=== PATIENT | female | born 1980 | race Two or more races ===

== ENCOUNTER 2016-08-01 14:18 | Inpatient (IN) | payer OTHER ==
[2016-08-01] MEDS ORDERED: DIAZEPAM 5 MG/ML SYRINGE 2 ML ONE (14:28)
[2016-08-01] MEDS ORDERED: LACTATED RINGERS 1,000 ML ONE (14:28)
[2016-08-01 15:01] LABS: ABSOLUTE NEUTROPHIL COUNT 4.3 K/mm3 (1.8-7.7); BASO # 0.1 K/mm3 (0.0-0.2); BASO % 1.5 % (0.2-1.0); EOS # 0.2 (0.0-0.5); EOS % 2.8 % (0.9-2.9); HEMATOCRIT 28.6 % (37.0-47.0); HEMOGLOBIN 8.4 gm/l (12.0-16.0); IMM NEUT # 0.1 K/mm3 (0-0.2); IMM NEUT% 1.6 % (0-1); LYMPH % 15.7 % (15-45); MEAN CELL VOLUME 76.3 fl (81.0-99.0); MEAN CORPUSCULAR HEMOGLOBIN 22.4 pg (27.0-31.0); MEAN CORPUSCULAR HGB CONC 29.4 g/dl (33.0-37.0); MEAN PLATELET VOLUME 13.1 fl (7.4-10.4); MONO # 0.6 (0.0-0.8); MONO % 9.5 % (4-12); NEUT % 68.9 % (43-75); PLATELET COUNT 185 K/mm3 (130-400); RED CELL DISTRIBUTION WIDTH 15.9 % (11.5-14.5)
--- NOTE | 2016-08-01 15:01 | RAD ---
CHEST-AP BEDSIDE HISTORY: Palpitation COMPARISONS: None. FINDINGS: A single view of the chest was performed demonstrating normal soft tissue and bony structures. The heart size is enlarged with evidence of central vascular congestion and mild diffuse bilateral interstitial prominence. No effusion or pneumothorax is visualized. The hilar and mediastinal structures are intact. IMPRESSION: 1. Cardiomegaly with central vascular congestion and mild diffuse bilateral interstitial prominence which may reflect findings of pulmonary edema.
[2016-08-01 15:07] LABS: INR 1.14; PROTHROMBIN TIME 12.1 SECONDS (9.3-11.4)
[2016-08-01 15:18] LABS: SPECIFIC GRAVITY 1.025 (1.001-1.030); URINE BILIRUBIN NEGATIVE (NEGATIVE); URINE BLOOD 2+ (NEGATIVE); URINE GLUCOSE (UA) NEGATIVE (NEGATIVE); URINE LEUKOCYTE ESTERASE TRACE (NEGATIVE); URINE NITRITE POSITIVE (NEGATIVE); URINE PROTEIN 1+ (NEGATIVE)
[2016-08-01 15:21] LABS: URINE APPEARANCE HAZY; URINE COLOR AMBER; URINE UROBILINOGEN 8 mg/dL (0-1 mg/dl)
[2016-08-01 15:25] LABS: URINE BACTERIA 3+; URINE EPITHELIAL CELLS 20-25 /hpf; URINE RBC 0-1 /hpf; URINE WBC 0-1 /hpf
[2016-08-01 15:38] LABS: AMPHETAMINES/METHAMPHETAMINES NEGATIVE (NEGATIVE); COCAINE NEGATIVE (NEGATIVE); MARIJUANA NEGATIVE (NEGATIVE); METHADONE NEGATIVE (NEGATIVE); OPIATES NEGATIVE (NEGATIVE); TRICYCLIC ANTIDEPRESSANTS NEGATIVE (NEGATIVE)
[2016-08-01 15:40] LABS: CALCIUM 8.3 mg/dL (8.6-10.3)
[2016-08-01 16:09] LABS: PLATELET ESTIMATE NORMAL (NORMAL)
[2016-08-01 16:10] LABS: HYPOCHROMIA 2+
[2016-08-01] MEDS ORDERED: FUROSEMIDE 40 MG/4 ML VIAL ONE (17:03)
[2016-08-01] MEDS ORDERED: SODIUM CHLORIDE 0.9% 1,000 ML ONE (17:58)
[2016-08-01 18:47] VITALS: BMI 37.1
[2016-08-01] MEDS ORDERED: SODIUM CHLORIDE 0.9% FLUSH 10 ML ONE (18:55)
[2016-08-01] MEDS ORDERED: BLISTEX LIPSTICK 1 EACH TP PRN (19:16)
[2016-08-01] MEDS ORDERED: ACETAMINOPHEN 325 MG TABLET PO PRN (19:16)
[2016-08-01] MEDS ORDERED: METOPROLOL TARTRATE 1 MG/ML 5ML VIAL IV ONE (19:22)
[2016-08-01] MEDS: FLUOXETINE HCL 20 MG CAPSULE PO SCH (19:46)
[2016-08-01] MEDS: PANTOPRAZOLE 40 MG TABLET DR PO SCH (19:50)
[2016-08-01] MEDS: METOPROLOL TARTRATE 25 MG TABLET PO SCH (20:05)
--- NOTE | 2016-08-01 20:17 | HP ---
RIC JOY [id number] : 1980 DATE OF ADMISSION: August 01, 2016 IDENTIFICATION: Ms. Joy is a 36-year-old who has been seen by Arcenio Ballard, nurse practitioner. CHIEF COMPLAINT: Palpitations. HISTORY OF PRESENT ILLNESS: Ms. Joy reports onset of rapid heart rate this afternoon. She has felt dizzy and faint but has not passed out since the palpitations started. She has had previous episodes of paroxysmal atrial fibrillation related to severe iron deficiency anemia. She was last hospitalized at [facility] with these symptoms in December,. She has previously declined gastrointestinal evaluation for her anemia, but is willing to have endoscopy at this point. She would prefer to have colonoscopy done by a female physician. In the emergency department she had marked tachycardia and hypotension. After telephone consultation with cardiology, she has been started on a blood transfusion, given a dose of furosemide and plan is for rate control with metoprolol rather than diltiazem because of evidence of heart failure. REVIEW OF SYSTEMS: HEENT: She reports stuffy nose and sore throat for the last couple of days. Faintness as above. RESPIRATORY: Nonproductive cough for a couple of days and dyspnea. CARDIAC: No chest pain just the palpitations. GASTROINTESTINAL: No nausea, vomiting or dyspepsia. No diarrhea, constipation, hematochezia or melena. GENITOURINARY: No dysuria or urgency. Last menstrual period was the end of June. She has regular periods but they are fairly light. MUSCULOSKELETAL: No complaints. CONSTITUTIONAL: No fevers or chills. PAST MEDICAL HISTORY: 1. Chronic iron deficiency anemia. As above, she has not had gastrointestinal workup. 2. Paroxysmal atrial fibrillation. 3. Obesity with a body mass index of 37.2 today. 4. Depression. PAST SURGICAL HISTORY: 1. section times four. 2. Tubal ligation. ALLERGIES: NONE KNOWN. MEDICATIONS: 1. She was previously on fluoxetine 20 mg per day 2. Oral diltiazem. 3. Iron and vitamin C. She has had no medications for the last month as she ran out. HABITS: She does smoke one or two cigarettes per day. Drinks alcohol, one or two beers about once a week. Denies illicit drug use. SOCIAL HISTORY: She has been staying with her mother in [facility] but recently returned to [place] where her children live with their father, and she has been staying at a friend's house. FAMILY HISTORY: No significant medical conditions in her parents or children. PHYSICAL EXAMINATION: GENERAL: This is an obese 36-year-old woman. She has a depressed affect but does not appear in acute distress. VITAL SIGNS: Pulse is 166, blood pressure 118/89, temperature 97.7 degrees Fahrenheit, respiratory rate 16, oxygen saturation 97% on room air. HEENT: Pupils are equal, round and reactive. Extraocular muscles are intact. Oropharynx is moist. CHEST: Does show crackles at the bases. HEART: Is rapid and irregular. ABDOMEN: Obese, soft, nontender, normal bowel tones, no organomegaly. EXTREMITIES: Good dorsalis pedis pulses. No cyanosis, clubbing or edema. NEUROLOGIC: Alert and oriented. No focal deficits. LABORATORY DATA: White blood cell count 6.2, hemoglobin and hematocrit 8.4 and 28.6. Indices are microcytic. Platelets 185. INR is 1.14. Sodium 138, potassium 3.8, chloride 107, CO2 22, BUN 8, creatinine 0.8, glucose 107, troponin I less than 0.01, B-type natriuretic peptide 157. Serum beta HCG is negative. Magnesium and TSH are pending. Urinalysis is contaminated with large amount of epithelial cells, therefore, chemistries are not reliable. Toxicology screen is negative for substances tested. RADIOLOGY: Chest x-ray shows cardiomegaly with central vascular congestion. ELECTROCARDIOGRAM: Atrial fibrillation with tachycardia. ASSESSMENT: Ms. Joy is a 36-year-old with recurrent paroxysmal atrial fibrillation with tachycardia. She has acute congestive heart failure secondary to the atrial fibrillation and all of this is likely secondary to her severe microcytic anemia. She has underlying depression and acute upper respiratory infection presumed to be viral, nicotine dependence, and obesity. PLAN: 1. Admit to intermediate care. 2. Transfuse one unit and possibly more packed red blood cells. 3. Attempt diuresis with intravenous furosemide as blood pressure tolerates. 4. Rate control with metoprolol as blood pressure tolerates. 5. Plan echocardiogram but this should be done when she is no longer in atrial fibrillation. 6. Encourage upper endoscopy and followup for colonoscopy. 7. Social work consult for nicotine cessation counseling as well as to discuss her living situation. 8. FULL CODE status. 9. Venous thrombosis risk is low. She does not require prophylaxis. cc: Desmond Concepcion
[2016-08-01] MEDS ORDERED: METOPROLOL TARTRATE 25 MG TABLET PO SCH (21:00)
[2016-08-02] MEDS: MENTHOL/CETYLPYRD 1 EACH LOZENGE PO PRN ×2 (01:56→09:40)
[2016-08-02 06:06] LABS: HEMATOCRIT 31.5 % (37.0-47.0); HEMOGLOBIN 9.3 gm/l (12.0-16.0)
[2016-08-02 06:20] LABS: CALCIUM 8.7 mg/dL (8.6-10.3)
[2016-08-02] MEDS ORDERED: BLOOD Y PLUMSET W/CASSETTE ONE (07:07)
[2016-08-02] MEDS ORDERED: SODIUM CHLORIDE 0.9% 500 ML ONE (07:08)
[2016-08-02] MEDS ORDERED: SODIUM CHLORIDE 0.9% 500 ML IV PRN (07:20)
[2016-08-02] MEDS: FLUOXETINE HCL 20 MG CAPSULE PO SCH (08:30)
[2016-08-02] MEDS: PANTOPRAZOLE 40 MG TABLET DR PO SCH (08:30)
[2016-08-02] MEDS: METOPROLOL TARTRATE 25 MG TABLET PO SCH (08:30)
[2016-08-02] MEDS ORDERED: DILTIAZEM HCL 5 MG/ML 5ML VIAL IV ONE (16:41)
--- NOTE | 2016-08-02 16:55 | PDOC43 ---
- Subjective Chief Complaint: Palpitations Feels "fine". Subjective: Reports Tolerating Diet Well, Denies Shortness of Breath, Denies Cough, Denies Chest Pain, Denies Abdominal Pain, Denies Nausea, Denies Vomiting , Denies Fever, Denies Chills - Objective Vital Signs Temperature 98.7 F 08/02/16 14:25 Pulse Rate 114 08/02/16 14:25 Respiratory Rate 24 08/02/16 14:25 Blood Pressure 114/73 08/02/16 14:25 O2 Saturation by Pulse Oximetry 97 08/02/16 14:25 Oxygen Delivery Method Room Air Oxygen Flow Rate 0 Intake and Output 08/01/16 08/02/16 08/03/16 06:59 06:59 06:59 Intake Total 700 380 Output Total 1350 Balance -650 380 General: Alert, Oriented x3, Cooperative, No Acute Distress HEENT: Atraumatic Lungs: Clear to Auscultation Bilaterally Cardiovascular: Irregular Abdomen: Soft, Normal Bowel Sounds, Non-Distended, No Tenderness Extremities: Normal Pulses, No Edema, No Tenderness Skin: Normal Color, Warm, Dry Laboratory 08/02/16 05:30 08/02/16 05:30 Current Medications: Current meds reviewed in EMR. - Problems: Assessment/Plan (1) Atrial fibrillation and flutter Status: AcuteAssessment/Plan: Recurrent paroxysmal atrial fib with RVR/tachycardia. Still in a fib with rapuid rate in spite of B sidney tx. Pt normally on diltiazem as outpt (none x several weeks). No evidence of CHF clinically. Will change to diltiazem tx. (2) Iron deficiency anemia Qualifiers: Iron deficiency anemia type: unspecified iron deficiency Qualifier Code : (D50.9) Iron deficiency anemia, unspecified Status: AcuteAssessment/Plan: Recurrent severe Fe deficient anemia. Multiple admits over last several years. Pt always unwilling to undergo workup (GI/Director Of Catering/Heme). Pt may be agreeable to workup this time. SW involved. (3) CHF (congestive heart failure) Qualifiers: Congestive heart failure type: unspecified congestive heart failure type Status: AcuteAssessment/Plan: Initial concern re CHF given subtle CXR findings and borderline BNP at admit. At this point there are no clinical s/sx of CHF. suspect sx etiology is atrial fib/rate. (4) Obesity (BMI 30.0-34.9) Status: ChronicAssessment/Plan: Complicating all of the above.
[2016-08-02] MEDS ORDERED: PUMP TUBING ONE (17:04)
[2016-08-02] MEDS: SODIUM CHLORIDE 0.9% 100 ML IV PRN (17:20)
[2016-08-02] MEDS: DILTIAZEM HCL/NORMAL SALINE 100 ML IV PRN ×2 (17:22→23:18)
[2016-08-02 20:18] LABS: URINE BILIRUBIN NEGATIVE (NEGATIVE); URINE BLOOD 2+ (NEGATIVE); URINE GLUCOSE (UA) NEGATIVE (NEGATIVE); URINE LEUKOCYTE ESTERASE NEGATIVE (NEGATIVE); URINE NITRITE POSITIVE (NEGATIVE); URINE PROTEIN 1+ (NEGATIVE)
[2016-08-02 20:23] LABS: URINE APPEARANCE CLOUDY; URINE COLOR DARK YELLOW; URINE UROBILINOGEN 8 mg/dL (0-1 mg/dl)
[2016-08-02 20:30] LABS: URINE BACTERIA 4+
[2016-08-03] MEDS: DILTIAZEM HCL/NORMAL SALINE 100 ML IV PRN ×5 (00:17→23:47)
[2016-08-03 08:16] LABS: HEMATOCRIT 34.2 % (37.0-47.0); HEMOGLOBIN 10.2 gm/l (12.0-16.0); MEAN CELL VOLUME 77.6 fl (81.0-99.0); MEAN CORPUSCULAR HEMOGLOBIN 23.1 pg (27.0-31.0); MEAN CORPUSCULAR HGB CONC 29.8 g/dl (33.0-37.0); RED CELL DISTRIBUTION WIDTH 16.3 % (11.5-14.5)
--- NOTE | 2016-08-03 08:18 | PDOC43 ---
- Subjective Chief Complaint: Palpitations Feels better this AM. No CP/SOB. Started dilt gtt last night but still in A fib. Better rate control. Subjective: Reports Urinating Without Difficulty, Denies Shortness of Breath, Denies Cough, Denies Chest Pain, Denies Abdominal Pain, Denies Nausea, Denies Vomiting, Denies Fever, Denies Chills - Objective Vital Signs Temperature 97.8 F 08/03/16 07:02 Pulse Rate 90 08/03/16 07:34 Respiratory Rate 30 08/03/16 07:34 Blood Pressure 112/77 08/03/16 07:34 O2 Saturation by Pulse Oximetry 94 08/03/16 07:12 Oxygen Delivery Method Room Air Oxygen Flow Rate 0 Intake and Output 08/02/16 08/03/16 08/04/16 06:59 06:59 06:59 Intake Total 1000 1737 Output Total 1350 275 Balance -350 1462 General: Alert, Oriented x3, Cooperative, No Acute Distress HEENT: Atraumatic Lungs: Clear to Auscultation Bilaterally Cardiovascular: Irregular Abdomen: Soft, Normal Bowel Sounds, Non-Distended, No Tenderness Extremities: Normal Pulses, No Edema Laboratory Pending. Current Medications: Current meds reviewed in EMR. - Problems: Assessment/Plan (1) Atrial fibrillation and flutter Status: AcuteAssessment/Plan: Initially presumed recurrent paroxysmal atrial fib with RVR/tachycardia, but reviewing chart at last hospitalization never converted back to NSR and was d/c' ed on po dilt- may have chronic a fib. HR at clinic visits in 02/03 were in low 100's. Still in a fib this AM with improved rate on dilt gtt. Pt normally on diltiazem as outpt (none x several weeks). No evidence of CHF clinically. Check echo and labs this AM. ASA/anticoagulation contraindicated d/t severe recurrent anemia presumed to be blood loss see below. (2) Iron deficiency anemia Qualifiers: Iron deficiency anemia type: unspecified iron deficiency Qualifier Code : (D50.9) Iron deficiency anemia, unspecified Status: AcuteAssessment/Plan: Recurrent severe Fe deficient anemia- presumed blood loss. Multiple admits over last several years for transfusion. Pt always unwilling to undergo workup (GI/Corporate Securities Research Analyst/Heme). No-showed for colonoscopy/EGD appointment last fall. Transfused 2 u prbc's 08/01. Follow H&H. Pt may be agreeable to workup this time- will get pelvic US today. Consider inpatient GI workup. Will d/w caremanagement- SW involved. (3) CHF (congestive heart failure) Qualifiers: Congestive heart failure type: unspecified congestive heart failure type Status: AcuteAssessment/Plan: Initial concern at admit re CHF given subtle CXR findings and borderline BNP at admit. At this point there are no clinical s/sx of CHF. Suspect sx etiology is atrial fib/rate. Echo pending. (4) Obesity (BMI 30.0-34.9) Status: ChronicAssessment/Plan: Complicating all of the above. Disposition: Anticipate d/c in 1-2 days.
[2016-08-03 08:45] LABS: CALCIUM 8.8 mg/dL (8.6-10.3)
[2016-08-03] MEDS: PANTOPRAZOLE 40 MG TABLET DR PO SCH (09:03)
[2016-08-03] MEDS: FLUOXETINE HCL 20 MG CAPSULE PO SCH (09:03)
[2016-08-03] MEDS ORDERED: LORAZEPAM 2 MG/ML 1ML SDV IV PRN (09:49)
[2016-08-03] MEDS ORDERED: SODIUM CHLORIDE 0.9% FLUSH 10 ML ONE (10:28)
[2016-08-03] MEDS ORDERED: IV START KIT ONE (10:28)
--- NOTE | 2016-08-03 11:35 | US ---
Exam: Complete pelvic ultrasound COMPARISON: None INDICATION: Recurrent blood loss and anemia. Findings: Transabdominal pelvic ultrasound was obtained. Transvaginal technique was not performed due to referring physician request. Uterus measures 9.0 x 5.0 x 5.5 cm and is homogeneous in echotexture. No myometrial masses are identified. Endometrium is within normal limits measuring up to 11 mm in bilayer thickness on the transvaginal exam. The right ovary measures 4.1 x 1.5 x 3.4 cm and the left ovary measures 3.9 x 1.8 x 3.2 cm. There is no cystic or solid ovarian mass. Blood flow is present within both ovaries. A small amount of simple appearing free fluid is identified within the pelvis superior to the urinary bladder, more than expected for physiologic range. IMPRESSION: 1. Uterus is within normal limits, without findings identified to explain recurrent blood loss and anemia. 2. Ovaries within normal limits. 3. At least a mild amount of ascites which is of uncertain etiology.
[2016-08-03] MEDS ORDERED: CEFTRIAXONE 1 GRAM DUPLEX 1 G in Premix (D5W) 50 ml 1 EACH IV SCH (13:15)
[2016-08-03] MEDS ORDERED: PUMP TUBING ONE (13:23)
[2016-08-03] MEDS: SODIUM CHLORIDE 0.9% 100 ML IV PRN ×2 (13:41→13:42)
[2016-08-03] MEDS ORDERED: DIGOXIN 0.25 MG/ML AMP IV ONE (16:37)
[2016-08-03] MEDS: DIGOXIN 0.25 MG/ML AMP IV SCH (21:21)
[2016-08-04] MEDS: DIGOXIN 0.25 MG/ML AMP IV SCH (03:08)
[2016-08-04 06:12] LABS: HEMATOCRIT 34.6 % (37.0-47.0); HEMOGLOBIN 10.2 gm/l (12.0-16.0); MEAN CELL VOLUME 77.1 fl (81.0-99.0); MEAN CORPUSCULAR HEMOGLOBIN 22.7 pg (27.0-31.0); MEAN CORPUSCULAR HGB CONC 29.5 g/dl (33.0-37.0); RED CELL DISTRIBUTION WIDTH 16.7 % (11.5-14.5)
[2016-08-04 06:43] LABS: CALCIUM 8.9 mg/dL (8.6-10.3); MAGNESIUM 2.1 mg/dL (1.9-2.7)
[2016-08-04] MEDS: DILTIAZEM HCL/NORMAL SALINE 100 ML IV PRN (07:19)
[2016-08-04] MEDS: FLUOXETINE HCL 20 MG CAPSULE PO SCH (08:46)
[2016-08-04] MEDS: PANTOPRAZOLE 40 MG TABLET DR PO SCH (08:46)
--- NOTE | 2016-08-04 10:34 | PDOC43 ---
- Subjective Chief Complaint: Palpitations Patient reports feeling ok, not short of breath so far, but has only been up to bathroom so far. No new c/o. - Objective Vital Signs Temperature 98.1 F 08/04/16 10:14 Pulse Rate 87 08/04/16 10:14 Respiratory Rate 21 08/04/16 10:18 Blood Pressure 101/65 08/04/16 10:14 O2 Saturation by Pulse Oximetry 97 08/04/16 10:14 Oxygen Delivery Method Room Air Oxygen Flow Rate 0 Vital Signs Last 12 Hours Temp Pulse Resp BP Pulse Ox 08/04/16 10:18 21 08/04/16 10:14 98.1 F 87 21 101/65 97 08/04/16 08:07 31 08/04/16 08:06 97 08/04/16 08:00 98.2 F 86 31 112/64 97 08/04/16 04:55 103 14 130/72 96 08/04/16 03:00 97.9 F 81 21 113/80 98 08/04/16 01:00 95 32 92/47 96 08/03/16 23:00 98 F 99 32 121/72 96 Intake and Output 08/02/16 08/03/16 08/04/16 23:59 23:59 23:59 Intake Total 1430 1961 1310 Output Total 892 716 8955 Balance 905 1261 -440 General: Alert, Cooperative, No Acute Distress HEENT: Atraumatic Lungs: Clear to Auscultation Bilaterally, Normal Air Movement Cardiovascular: Irregular Abdomen: Soft, Normal Bowel Sounds, Non-Distended Extremities: No Edema, No Tenderness Skin: Normal Color Neurological: Normal Speech Laboratory 08/04/16 05:30 08/04/16 05:30 08/04/16 05:30 MCV 77.1 L MCH 22.7 L MCHC 29.5 L RDW 16.7 H Estimated GFR 113 H TSH normal. Current Medications: Current meds reviewed in EMR. Active Medications Acetaminophen (Tylenol) 650 mg PO Q6H PRN PRN Reason: Pain or Temperature > 100.5 F Benzocaine/Menthol (Cepacol) 1 each PO PRN PRN PRN Reason: Sore Throat Last Admin: 08/02/16 09:40 Dose: 1 each Fluoxetine HCl (Prozac) 20 mg PO DAILY [facility] Last Admin: 08/04/16 08:46 Dose: 20 mg Sodium Chloride (Sodium Chloride 0.9%) 100 mls @ 25 mls/hr IV PRN PRN PRN Reason: Flush Last Admin: 08/03/16 13:42 Dose: 25 mls/hr Sodium Chloride (Sodium Chloride 0.9%) 500 mls @ 25 mls/hr IV .Q20H PRN PRN Reason: Blood Transfusion Last Admin: 08/02/16 07:23 Dose: 25 mls/hr DILTIAZEM HCL/NORMAL SALINE (Cardizem Premix 100 Mg/100 Ml) 100 mls @ 5 mls/hr IV TITRATE PRN; Protocol; 5 MG/HR PRN Reason: Tachycardia Last Admin: 08/04/16 07:19 Dose: 12 mls/hr Ceftriaxone Sodium/Dextrose 1 (g/ Premix (D5W) 50 ml) 50 mls @ 100 mls/hr IV Q24H [facility] Last Admin: 08/03/16 13:41 Dose: 100 mls/hr Lorazepam (Ativan) 0.5 - 1 mg IV Q4H PRN PRN Reason: Anxiety Last Admin: 08/03/16 10:09 Dose: 0.5 mg Pantoprazole Sodium (Protonix) 40 mg PO DAILY [facility] Last Admin: 08/04/16 08:46 Dose: 40 mg Petrolatum/Paraffin/Mineral Oil (Blistex) 1 each TP PRN PRN PRN Reason: Dry and/or chapped lips Sodium Chloride (Normal Saline 10ml Flush) 10 - 50 ml IV PRN PRN PRN Reason: IV Flush Last Admin: 08/03/16 10:09 Dose: 10 ml Sodium Chloride (Normal Saline 10ml Flush) 10 ml IV Q8HR [facility] Last Admin: 08/04/16 08:45 Dose: 10 ml - Problems: Assessment/Plan (1) Atrial fibrillation and flutter Status: AcuteAssessment/Plan: Initially presumed recurrent paroxysmal atrial fib with RVR/tachycardia, but reviewing chart at last hospitalization never converted back to NSR and was d/c' ed on po dilt- suspect she just has chronic a fib. Still in a fib this AM with improved rate on diltiazem gtt. Pt normally on diltiazem as outpt (none x several weeks), plan revise to PO ( currently at 12). No evidence of CHF clinically. Echo --LVEF 45-50%, somewhat reduced. SHEFALI, mild-mod Pulm HTN. ASA/anticoagulation contraindicated d/t severe recurrent anemia presumed to be blood loss see below. (2) Iron deficiency anemia Qualifiers: Iron deficiency anemia type: unspecified iron deficiency Qualifier Code : (D50.9) Iron deficiency anemia, unspecified Status: AcuteAssessment/Plan: Recurrent severe Fe deficient anemia- MCV 77, presumed blood loss. Multiple admits over last several years for transfusion. Pt had been unwilling to undergo workup (GI/Quality Nurse/Heme). No-showed for colonoscopy/EGD appointment last fall. Transfused 2 u prbc's 08/01/16. . Pt may be agreeable to workup this time- Pt reports being on PO iron (compliance?), so will give Venofer while here. Pelvic ultrasound - generally normal, small amnt ascites suggested Consider outpatient GI workup, as she requests female to scope, and that is not currently available. (3) Nicotine dependence Qualifiers: Nicotine product type: cigarettes Status: ChronicAssessment/Plan: encourage quitting (4) Obesity, Class II, BMI 35-39.9 Status: ChronicAssessment/Plan: suspect contributing to pulmonary HTN. (5) UTI (lower urinary tract infection) Status: AcuteAssessment/Plan: On Ceftriaxone. Klebsiella pneumoniae identified. Anticipate revision to PO abx- >Bactrim VTE Prophylaxis Contraindications: Drug treatment not indicated Disposition: Anticipate d/c when can tolerate activity on PO diltiazem.
[2016-08-04] MEDS ORDERED: SULFAMETHOXAZOLE 800 MG/TRIMETHOPRIM 160 MG TABLET PO SCH (11:00)
[2016-08-04] MEDS ORDERED: IRON SUCROSE COMPLEX 200 MG in SODIUM CHLORIDE 0.9% 100 ML IV ONE (11:30)
[2016-08-04] MEDS: LEVOFLOXACIN 250 MG TABLET PO SCH (11:42)
[2016-08-04] MEDS ORDERED: DIGOXIN 0.25 MG TABLET PO SCH (12:00)
[2016-08-04] MEDS: DILTIAZEM HCL 30 MG TABLET PO SCH ×2 (12:38→17:21)
[2016-08-04] MEDS: SODIUM CHLORIDE 0.9% 100 ML IV PRN (12:39)
--- NOTE | 2016-08-04 17:25 | PDOC36 ---
Provider Note Subject: Phone call to pushcart peddler Note: Reviewed echo/mitral regurgitation/reduced EF with DR Manzano, who also read the echo. He recommends use of metoprolol rather than diltiazem. Dose switched now; will observe overnight Pt has been off drip for 2 hours, rate doing well. Discussed choice of anticoagulation to prevent stroke due to ongoing atrial fib. Offered again this afternoon; patient refuses anticoagulation. Continue digoxin. Strongly encouraged patient to be sure to follow up with pushcart peddler; she agrees to. Encouraged to continue on iron PO. Did get dose of Venofer here today. Pt indicates she wishes to go home, but recommended she stay here tonight to see that she tolerates metoprolol ok. 17:23 08/04/16
[2016-08-04] MEDS: METOPROLOL TARTRATE 50 MG TABLET PO SCH (21:00)
--- NOTE | 2016-08-05 06:50 | PDOC43 ---
- Subjective Chief Complaint: Palpitations Patient reports doing well, uneventful night. Tolerating activity in her room ok. No new c/o. Would like to go home; but needs a ride to [place]. - Objective Vital Signs Temperature 98.3 F 08/05/16 03:03 Pulse Rate 62 08/05/16 03:03 Respiratory Rate 22 08/05/16 03:03 Blood Pressure 105/66 08/05/16 03:03 O2 Saturation by Pulse Oximetry 100 08/05/16 03:03 Oxygen Delivery Method Room Air Oxygen Flow Rate 0 Vital Signs Last 12 Hours Temp Pulse Resp BP Pulse Ox 08/05/16 03:03 98.3 F 62 22 105/66 100 08/05/16 02:00 20 08/04/16 23:52 68 20 109/61 100 08/04/16 20:58 90 29 117/57 95 08/04/16 19:56 20 08/04/16 19:00 98.5 F 80 30 107/58 95 Intake and Output 08/03/16 08/04/16 08/05/16 23:59 23:59 23:59 Intake Total 1961 2414 995 Output Total 700 2475 800 Balance 1261 -61 195 General: Alert, Cooperative, No Acute Distress Lungs: Clear to Auscultation Bilaterally, Normal Air Movement Cardiovascular: Irregular, Other (murmur not auscultated, but significant MR noted on echo) Abdomen: Soft, Normal Bowel Sounds, Non-Distended Extremities: No Edema Skin: Normal Color Neurological: Normal Speech Psych/Mental Status: Normal Affect Laboratory 08/04/16 05:30 08/04/16 05:30 08/04/16 05:30 Estimated GFR 113 H Current Medications: Current meds reviewed in EMR. Active Medications Acetaminophen (Tylenol) 650 mg PO Q6H PRN PRN Reason: Pain or Temperature > 100.5 F Benzocaine/Menthol (Cepacol) 1 each PO PRN PRN PRN Reason: Sore Throat Last Admin: 08/02/16 09:40 Dose: 1 each Digoxin (Lanoxin) 0.25 mg PO DAILY@1200 [facility] Last Admin: 08/04/16 11:42 Dose: 0.25 mg Fluoxetine HCl (Prozac) 20 mg PO DAILY [facility] Last Admin: 08/04/16 08:46 Dose: 20 mg Sodium Chloride (Sodium Chloride 0.9%) 100 mls @ 25 mls/hr IV PRN PRN PRN Reason: Flush Last Admin: 08/04/16 12:39 Dose: 25 mls/hr Sodium Chloride (Sodium Chloride 0.9%) 500 mls @ 25 mls/hr IV .Q20H PRN PRN Reason: Blood Transfusion Last Admin: 08/02/16 07:23 Dose: 25 mls/hr DILTIAZEM HCL/NORMAL SALINE (Cardizem Premix 100 Mg/100 Ml) 100 mls @ 5 mls/hr IV TITRATE PRN; Protocol; 5 MG/HR PRN Reason: Tachycardia Last Titration: 08/04/16 14:54 Dose: 0 mg/hr Levofloxacin (Levaquin) 250 mg PO DAILY [facility] Last Admin: 08/04/16 11:42 Dose: 250 mg Lorazepam (Ativan) 0.5 - 1 mg IV Q4H PRN PRN Reason: Anxiety Last Admin: 08/03/16 10:09 Dose: 0.5 mg Losartan Potassium (Cozaar) 12.5 mg PO DAILY [facility] Metoprolol Tartrate (Lopressor) 50 mg PO BID [facility] Last Admin: 08/04/16 21:00 Dose: 50 mg Pantoprazole Sodium (Protonix) 40 mg PO DAILY [facility] Last Admin: 08/04/16 08:46 Dose: 40 mg Petrolatum/Paraffin/Mineral Oil (Blistex) 1 each TP PRN PRN PRN Reason: Dry and/or chapped lips Sodium Chloride (Normal Saline 10ml Flush) 10 - 50 ml IV PRN PRN PRN Reason: IV Flush Last Admin: 08/03/16 10:09 Dose: 10 ml Sodium Chloride (Normal Saline 10ml Flush) 10 ml IV Q8HR [facility] Last Admin: 08/05/16 01:30 Dose: 10 ml - Problems: Assessment/Plan (1) Atrial fibrillation and flutter Status: AcuteAssessment/Plan: Chronic atrial fibrillation, due to bilateral atrial enlargement due to mitral regurgitation Associated with cardiomyopathy, with reduced LVEF and pulmonary HTN. Possible role of tachycardia inducing cardiomyopathy Switched to PO metoprolol 08/04 per drum stenciler On digoxin for rate control Discussed risks/benefits of anticoagulation, but pt declines. Pt to follow up with cardiology for consideration of JD, cath, further evaluation (2) Iron deficiency anemia Qualifiers: Iron deficiency anemia type: unspecified iron deficiency Qualifier Code : (D50.9) Iron deficiency anemia, unspecified Status: AcuteAssessment/Plan: Recurrent severe Fe deficient anemia- MCV 77, presumed blood loss. Multiple admits over last several years for transfusion. Pt had been unwilling to undergo workup (GI/Manager Industrial/Heme). No-showed for colonoscopy/EGD appointment last fall. Transfused 2 u prbc's 08/01/16. Pt more agreeable to workup this time- Pt reports being on PO iron (uncertain compliance?), so will gave a 200 mg dose of Venofer. Pelvic ultrasound - generally normal, small amount ascites suggested Consider outpatient GI workup, as she requests a female to do scope, and that is not currently available. (3) Nicotine dependence Qualifiers: Nicotine product type: cigarettes Status: ChronicAssessment/Plan: encourage quitting (4) Obesity, Class II, BMI 35-39.9 Status: ChronicAssessment/Plan: could be contributing to pulmonary HTN. (5) UTI (lower urinary tract infection) Status: AcuteAssessment/Plan: On Ceftriaxone. Klebsiella pneumoniae identified. Anticipate revision to PO abx- >Bactrim changed to Levaquin due to drug interactions VTE Prophylaxis Contraindications: Drug treatment not indicated VTE Prophylaxis: mechanical, ambulation due to anemia Disposition: Anticipate d/c today if able to tolerate activity on metoprolol and digoxin Pt is staying with friend, needs a ride to [place]
[2016-08-05 06:52] VITALS: BP 117/69
[2016-08-05] MEDS: METOPROLOL TARTRATE 50 MG TABLET PO SCH (08:16)
[2016-08-05] MEDS: PANTOPRAZOLE 40 MG TABLET DR PO SCH (08:16)
[2016-08-05] MEDS: LEVOFLOXACIN 250 MG TABLET PO SCH (08:16)
[2016-08-05] MEDS: FLUOXETINE HCL 20 MG CAPSULE PO SCH (08:16)
[2016-08-05] MEDS ORDERED: LOSARTAN POTASSIUM 50 MG TABLET PO SCH (09:00)
--- NOTE | 2016-08-05 13:37 | DS ---
RIC JOY [id number] DATE OF ADMISSION: 08/01/2016 DATE OF DISCHARGE: 08/05/2016 DISCHARGE DIAGNOSES: 1. Moderate to severe mitral valve regurgitation, with bilateral atrial enlargement, decreased left ventricular ejection fraction of 45-50%, and associated pulmonary hypertension. 2. Atrial fibrillation with rapid heart rate; patient declines anticoagulation. 3. Anemia, with iron-deficiency; 200 mg of Venofer were given IV during this hospitalization. 4. History of smoking. 5. History of depression. 6. Homelessness, staying with a friend. 7. BMI of 37.2. REASON FOR ADMISSION: The patient is a 36-year-old female who has had chronic atrial fibrillation. She noted a worsening of this and felt dizzy and faint on the afternoon of admission. She has had previous atrial fibrillation related to severe iron-deficiency anemia and had been hospitalized last December of 2015. She has previously refused gastrointestinal evaluation. In the emergency department she was noted to be tachycardiac and hypotensive, and she was given a blood transfusion, a dose of furosemide, and given rate control with metoprolol. She had admission labs showing a white blood cell count of 6.2, hemoglobin 8.4, MCV of 76 and platelets of 185. INR of 1.14. Chemistry profile with a sodium of 138, potassium 3.8, BUN of 8, creatinine 0.8, bicarbonate 22, calcium 8.3, troponin less than 0.01, magnesium 2.0 and BNP of 157. TSH of 3.32. HCG is negative. Urinalysis had shown 1+ protein, positive nitrites, 8 mg/dL of urobilinogen, trace leukocyte esterase, 0-1 white cells and 20-25 epithelial cells. Her urine culture performed on 08/02/2016 showed Klebsiella pneumonia with resistance to ampicillin, but otherwise was susceptible to all drugs tested. The patient was treated with levofloxacin 250 mg daily. The patient demonstrated a difficult to control heart rate and so was switched to a diltiazem drip, and had fair control with this. She was also started on digoxin and after consultation with cardiology again she was returned to metoprolol and digoxin, and by 08/05/2016 she appeared to be maintaining adequate rate control. She received a transfusion of two units of packed red blood cells and her hemoglobin improved from 8.4 to 10.2. Her chemistry profile remained unremarkable and urine drug screen had been done on admission, which was all negative. Digoxin was 1.3 on the morning of 08/05/2016. The patient had a chest x-ray performed on admission, which had shown cardiomegaly with central vascular congestion and mild diffuse bilateral interstitial prominence, which may represent findings of pulmonary edema. A pelvic ultrasound was done in evaluation for her anemia, which showed uterus within normal limits, ovaries within normal limits and a mild amount of ascites. The patient requested a female to do endoscopy, but this was not available at this time, so it will be arranged for outpatient follow-up. A transthoracic echocardiogram was performed, showing mildly reduced left ventricular function at 45-50%, atrial fibrillation, elevated filling pressures, severe left atrial enlargement, moderate to severe mitral valve regurgitation, trace aortic valve regurgitation, mild pulmonic valve regurgitation, moderate tricuspid valve regurgitation, right ventricular systolic pressure estimated at 50 mmHg, suggestive of moderate pulmonary hypertension, and moderate right atrial enlargement noted. The patient was managing well on oral medications and ambulating reasonably well, so is anticipated to be discharged to home on 08/05/2016. DISCHARGE MEDICATIONS: Are anticipated to be: 1. Digoxin 0.25 mg daily. 2. Ferrous sulfate 325 mg daily. 3. Fluoxetine 20 mg by mouth daily. 4. Losartan 12.5 mg by mouth daily. 5. Metoprolol succinate 100 mg by mouth daily, although an alternate prescription is given for metoprolol tartrate 50 mg by mouth twice a day if she is unable to get the XL. 6. Omeprazole 20 mg by mouth daily. DISCHARGE FOLLOW-UP: 1. MIGUE Collier, on 08/10/2016 at 10:30 A.M. 2. She also has follow-up with Dr. Samuel Manzano, which will be scheduled later because of the weekend, regarding her severe mitral regurgitation and decreased ejection fraction. 3. She will also follow-up with Dr. Clari James regarding consideration for upper and lower endoscopy to evaluate for her severe microcytic anemia. DISCHARGE ACTIVITY: As tolerated. She is advised to rest after getting short of breath. She is advised to not smoke. VITAL SIGNS AT THE TIME OF DISCHARGE: Temperature 97.8. Pulse 71. Blood pressure 117/69. Respirations 22. Saturation 99% on room air. cc: MIGUE Collier Dr., [employer] Dr. Clari James, Surgeon
== END 2016-08-05 09:45 | disposition home or self-care (01) | DRG 307 ==
LOC: ED 14:18 → ICU 17:21
PROVIDERS: ADMIT Family Medicine; ATTEND Family Medicine
DX: I34.0 Nonrheumatic mitral (valve) insufficiency (principal); N39.0 Urinary tract infection, site not specified; I27.2 Other secondary pulmonary hypertension; D50.9 Iron deficiency anemia, unspecified; Z87.891 Personal history of nicotine dependence; Z59.0 Homelessness; E66.9 Obesity, unspecified; Z68.37 Body mass index [BMI] 37.0-37.9, adult; B96.1 Klebsiella pneumoniae [K. pneumoniae] as the cause of diseases classified elsewhere; I48.0 Paroxysmal atrial fibrillation